=== PATIENT | male | born 1940 | race Caucasian/White ===

== ENCOUNTER 2017-02-17 18:27 | Emergency (ER) | payer MEDICARE ==
[2017-02-17] MEDS ORDERED: Al Hydrox/Mg Hydrox/Simet LIQ* 30 ML UDC PO ONE (18:55)
[2017-02-17] MEDS ORDERED: Lidocaine 2% VISCOUS* 15 ML UDC PO ONE (18:55)
--- NOTE | 2017-02-17 19:03 | ED ---
Complex/Multi-Sys Presentation - HPI Summary HPI Summary: 76 male presents to ED with complaints of having dysphagia and "a piece of pork , stuck in his throat". States about 1 hour ago he was eating pork when he felt it get stuck and be very painful to swallow it and like it got stuck in his esophagus. States he does not think he was ever choking. Denies ever having symptoms like this in the past. Admits to having GERD. Also states he has had some issues with it being hard to swallow at times, however nothing to this extent. [place] like he was going to have trouble breathing once the piece of pork was stuck in his throat. Patient states it seems to have since been improving since. At first was unable to to drink water without spitting some of it up, however is keeping down saliva and water orally currently. No other complaints. No SOB or trouble breathing. No medications. Denies any blood. - History Of Current Complaint Chief Complaint: EDForeignBodyEsophag Time Seen by Provider: 02/17/17 18:34 Hx Obtained From: Patient Onset/Duration: Sudden Onset, Lasting Hours - 1, Still Present, Resolved - mostly Timing: Constant, Hours - 1 Severity Currently: Severe Severity Initially: Mild Location: Pain At: - mid neck at area of esophagus Aggravating Factor(s): nothing Alleviating Factor(s): burping, drinking water Associated Signs And Symptoms: Positive: Other - possible FB in esophagus PMH/Surg Hx/FS Hx/Imm Hx Cardiovascular History: Reports: Hx Hypertension Respiratory History: Reports: Hx Chronic Obstructive Pulmonary Disease (COPD) Musculoskeletal History: Reports: Hx Back Problems, Hx of Fracture(s) - hip - Surgical History Surgery Procedure, Year, and Place: n/a - Immunization History Immunizations Up to Date: Yes Infectious Disease History: No Infectious Disease History: Denies: Traveled Outside the [place] in Last 30 Days - Family History Known Family History: Positive: None - Social History Alcohol Use: None Substance Use Type: Reports: None Smoking Status (MU): Former Smoker Review of Systems Constitutional: Negative Cardiovascular: Negative Respiratory: Negative Positive: Other - food stuck in throat All Other Systems Reviewed And Are Negative: Yes Physical Exam Triage Information Reviewed: Yes Vital Signs On Initial Exam: Initial Vitals Temp Pulse Resp BP Pulse Ox 99.3 F 81 17 168/86 100 02/17/17 18:37 02/17/17 18:37 02/17/17 18:37 02/17/17 18:37 02/17/17 18:37 elevated BP however patient anxious, has HTN, improved during visit Vital Signs Reviewed: Yes Appearance: Positive: Well-Appearing - appears anxious, No Pain Distress, Well- Nourished Skin: Positive: Warm, Skin Color Reflects Adequate Perfusion, Dry. Negative: Cold, Numb, Cyanosis @, Pale, Erythema @ Head/Face: Positive: Scalp Eyes: Positive: Conjunctiva Clear ENT: Positive: Hearing grossly normal, Pharynx normal, TMs normal, Uvula midline - airway patent from what is visible in oropharynx Neck: Positive: Supple, Nontender Respiratory/Lung Sounds: Positive: Clear to Auscultation, Breath Sounds Present , Other - speaking full sentences without difficulty. no signs of respiratory distress. Negative: Decreased Breath Sounds, Rales, Rhonchi, Stridor, Tracheal Deviation, Wheezes, Unable to speak in full sentences Cardiovascular: Positive: Normal, RRR, Pulses are Symmetrical in both Upper and Lower Extremities. Negative: Murmur, Rub Abdomen Description: Positive: Nontender, Soft Bowel Sounds: Positive: Present Musculoskeletal: Positive: Strength/ROM Intact Neurological: Positive: Normal, Sensory/Motor Intact, Alert, Oriented to Person Place, Time Diagnostics - Vital Signs Vital Signs Temp Pulse Resp BP Pulse Ox 02/17/17 18:37 99.3 F 81 17 168/86 100 - Laboratory Lab Statement: Any lab studies that have been ordered have been reviewed, and results considered in the medical decision making process. Re-Evaluation - Re-Evaluation First Eval Re-Evaluation Time: 19:52 Change: Improved - improved significantly since when symptoms began, excelled po challenge and GI cocktail improved symptoms. updated on plan. ready to be d/c Complex Multi-Symp Course/Dx Course Of Treatment: patient given po challenge after assessed and not showing any signs of choking or respiratory distress/compromise. Patient was able to drink 2 full cups of water and keep down saliva, without difficulty. Given GI cocktail and had relief. Appears patient is suffering from soreness after having FB/food stuck in throat. Patient is able to keep down food/drink and saliva po. No GI educational technologist. Will have patient follow up with GI outpatient as it does not appear to be emergent at this time. Spontaneously resolved. No other complaints at this time. Return if new or worsening symptoms to watch out for. - Diagnoses Differential Diagnoses/HQI/PQRI: Other - Fb in throat, esophageal spasm, esophageal stricture, regis victor tear, ulcer, esophageal pain, choking Provider Diagnoses: FB esophagus, Normal exam Discharge - Discharge Plan Condition: Improved Disposition: HOME Patient Education Materials: Esophageal Foreign Body (ED), Esophageal Stricture (ED) Referrals: Nj Sorensen MD [Medical Doctor] - Additional Instructions: Please follow up with GI specialist this week for further evaluation and work up. Any new, worsening or returning symptoms please seek medical attention immediately, as discussed. Follow up with PCP. Stick to softer foods, liquids and avoid meats until further evaluated by GI specialist.
[2017-02-17 19:59] VITALS: BP 178/81
== END 2017-02-17 20:10 | disposition home or self-care (01) ==
LOC: ED 18:27
DX: T18.128A Food in esophagus causing other injury, initial encounter (principal); X58.XXXA Exposure to other specified factors, initial encounter; Y93.9 Activity, unspecified; Y92.9 Unspecified place or not applicable
CPT/HCPCS: 99282; A9270-GY